=== PATIENT | male | born 1995 | race Caucasian/White ===

== ENCOUNTER 2020-03-06 12:21 | Emergency (ER) | payer OTHER ==
[~2020-03-06] VITALS: Ht 170.1 cm; Wt 74.8 kg
== END 2020-03-06 13:57 | disposition home or self-care (01) ==
LOC: ED 12:21
DX: S09.90XA Unspecified injury of head, initial encounter (principal); W20.8XXA Other cause of strike by thrown, projected or falling object, initial encounter; Y93.89 Activity, other specified; Y92.89 Other specified places as the place of occurrence of the external cause; Y99.8 Other external cause status

== ENCOUNTER 2021-10-31 10:04 | Emergency (ER) | payer OTHER ==
[~2021-10-31] VITALS: Wt 79.4 kg
== END 2021-10-31 11:15 | disposition home or self-care (01) ==
LOC: ED 10:04
DX: S61.412A Laceration without foreign body of left hand, initial encounter (principal); W26.0XXA Contact with knife, initial encounter; Y93.89 Activity, other specified; Y92.89 Other specified places as the place of occurrence of the external cause; Y99.8 Other external cause status